=== PATIENT | female | born 1980 | race African-American/Black ===

== ENCOUNTER 2017-02-14 22:55 | Emergency (ER) | payer BC ==
[2017-02-14 23:45] VITALS: BP 133/70; PULSE 63; BMI 34.9
[2017-02-15 00:24] LABS: URINE APPEARANCE SLCLOUDY; URINE BILIRUBIN NEGATIVE (NEGATIVE); URINE BLOOD NEGATIVE (NEGATIVE); URINE COLOR YELLOW; URINE GLUCOSE (UA) NEGATIVE (NEGATIVE); URINE KETONE TRACE (NEGATIVE); URINE LEUK ESTERASE TRACE (NEGATIVE); URINE NITRITE NEGATIVE (NEGATIVE); URINE UROBILINOGEN NEGATIVE mg/dL (0.2-1.0)
[2017-02-15 00:25] LABS: URINE PROTEIN 1+ (NEGATIVE)
[2017-02-15] MEDS ORDERED: SODIUM CHLORIDE 0.9% 1000 ML INFUS.BAG IV ONE (00:25)
[2017-02-15] MEDS ORDERED: ONDANSETRON 4 MG/2 ML VIAL IVPUSH ONE (00:25)
[2017-02-15] MEDS ORDERED: ONDANSETRON 4 MG/2 ML VIAL ONE (00:31)
[2017-02-15 00:32] LABS: URINE MUCUS MODERATE; URINE RBC 1 /hpf (0-3); URINE WBC 12 /hpf (3-5)
[2017-02-15 00:48] LABS: ALBUMIN 3.9 g/dl (3.4-5.0); ALK PHOS 51 U/L (45-117); ANION GAP 9 (8-16); BILIRUBIN,TOTAL 0.5 mg/dL (0.2-1.0); CALCIUM 9.2 mg/dL (8.5-10.1); CO2 24 mmol/L (21-32); CREATININE 0.7 mg/dL (0.55-1.02); GLUCOSE,RANDOM 105 mg/dL (74-106); SGPT/ALT 25 U/L (12-78); TOT PROT 7.4 g/dl (6.4-8.2)
--- NOTE | 2017-02-15 00:48 | PDOC ---
History of Present Illness - General Chief Complaint: Nausea/Vomiting Stated Complaint: VOMITING/DIARRHEA Time Seen by Provider: 02/14/17 23:34 - History of Present Illness Initial Comments: 02/15/17 00:36 CHIEF COMPLAINT: HISTORY OF PRESENT ILLNESS: 36 yo F with hx of asthma presents to ED with abdominal pain and vomiting since this morning. Patient states she woke up and has been persistently vomiting all day, "around 15 times." She states she ate steak yesterday "and hasn't had any steak in the last 2-3 months." PAST MEDICAL HISTORY: Denies past medical history FAMILY HISTORY: Denies SOCIAL HISTORY: Denies tobacco, alcohol, illicit drug use. SURGICAL HISTORY: Denies ALLERGIES: No known drug allergies REVIEW OF SYSTEMS General/Constitutional: Denies fever or chills. Denies weakness, weight change. HEENT: Denies change in vision. Denies ear pain or discharge. Denies sore throat. Cardiovascular: Denies chest pain or shortness of breath. Respiratory: Denies cough, wheezing, or hemoptysis. Gastrointestinal: Denies nausea, vomiting, diarrhea or constipation. Denies rectal bleeding. Genitourinary: Denies dysuria, frequency, or change in urination. Musculoskeletal: Denies joint or muscle swelling or pain. Denies neck or back pain. Skin and breasts: Denies rash or easy bruising. Neurologic: Denies headache, vertigo, loss of consciousness, or loss of sensation. PHYSICAL EXAM General Appearance: Well-appearing, appropriately dressed. HEENT: EOMI, PERRLA, normal ENT inspection, normal voice, TMs normal, pharynx normal. No conjunctival pallor. No photophobia, scleral icterus. Neck: Supple. Trachea midline. No tenderness, rigidity, carotid bruit, stridor , lymphadenopathy, or thyromegaly. Respiratory/Chest: Lungs CTAB. Cardiovascular: RRR. S1, S2. Vascular Pulses: Dorsalis-Pedis (R): 2+, Dorsalis-Pedis (L): 2+ Gastrointestinal/Abdominal: TTP to RUQ and epigastrum. Normal bowel sounds. Abdomen soft, non-distended. No organomegaly, pulsatile mass, guarding, hernia , hepatomegaly, splenomegaly. Lymphatic: No adenopathy, tenderness. Musculoskeletal/Extremities: Normal inspection. FROM of all extremities, normal capillary refill. Pelvis Stable. No CVA tenderness. No tenderness to extremities, pedal edema, swelling, erythema or deformity. Integumentary: Appropriate color, dry, warm. No cyanosis, erythema, jaundice or rash Neurologic: cuff setter lockstitch II-XII intact. Fully oriented, alert. Appropriate mood/affect. Motor strength 5/5. No appreciable EOM palsy, facial droop or sensory deficit. 02/15/17 02:22 Past History - Past Medical History Allergies/Adverse Reactions: Allergies Allergy/AdvReac Type Severity Reaction Status Date / Time No Known Allergies Allergy Verified 02/14/17 23:40 Home Medications: Ambulatory Orders Ondansetron [Zofran *Odt*] 8 mg SL BID PRN #14 od.tablet 02/15/17 Asthma: Yes Cancer: No Cardiac Disorders: No Diabetes: No HTN: No Suicide Attempt (Hx): No Seizures: No Thyroid Disease: No - Reproductive History (#): 2 Para: 1 - Immunization History Immunization Up to Date: Yes - Psycho/Social/Smoking Cessation Hx Anxiety: No Suicidal Ideation: No Smoking Status: No Smoking History: Never smoked Have you smoked in the past 12 months: No Number of Cigarettes Smoked Daily: 2 Information on smoking cessation initiated: No Hx Alcohol Use: No Drug/Substance Use Hx: No Substance Use Type: Alcohol Hx Substance Use Treatment: No *Physical Exam - Vital Signs Last Vital Signs Temp Pulse Resp BP Pulse Ox 63 14 133/70 98 02/14/17 23:40 02/14/17 23:40 02/14/17 23:40 02/14/17 23:40 ED Treatment Course - LABORATORY CBC & Chemistry Diagram: 02/15/17 00:15 - ADDITIONAL ORDERS Additional order review: Laboratory Results 02/15/17 00:12 Urine Color Yellow Urine Appearance Slcloudy Urine pH 6.0 D Urine Protein 1+ H Urine Glucose (UA) Negative Urine Ketones Trace H Urine Blood Negative Urine Nitrite Negative Urine Bilirubin Negative Urine Urobilinogen Negative Ur Leukocyte Esterase Trace Urine RBC 1 Urine WBC 12 Ur Epithelial Cells Moderate Urine Mucus Moderate Medical Decision Making - Medical Decision Making 02/15/17 00:48 36 yo F with hx of asthma presents to ED with abdominal pain and vomiting since this morning. -CBC, CMP, lipase -UA, UCx, lipase -Zofran, IVF *DC/Admit/Observation/Transfer Diagnosis at time of Disposition: Vomiting - Discharge Dispostion Disposition: HOME Condition at time of disposition: Stable Admit: No - Prescriptions Prescriptions: Ondansetron [Zofran *Odt*] 8 mg SL BID PRN #14 od.tablet PRN Reason: Nausea And/Or Vomiting - Referrals Referrals: Cristian Colbert MD [Primary Care Provider] - - Patient Instructions Printed Discharge Instructions: DI for Vomiting -- Adult Additional Instructions: Please take medication as prescribed. As discussed, please see Dr. Colbert on as planned, and if you develop any new or worsening abdominal pain, fever, chills, tremors, or any new or worsening symptoms, please return to the ER.
[2017-02-15 00:54] LABS: SGOT/AST 12 U/L (15-37)
[2017-02-15] MEDS ORDERED: ONDANSETRON *ODT* 4 MG TABLET SL ONE (01:02)
[2017-02-15] MEDS ORDERED: ONDANSETRON *ODT* 4 MG TABLET ONE (01:03)
== END 2017-02-15 02:29 | disposition home or self-care (01) ==
LOC: JER 22:55
DX: R11.10 Vomiting, unspecified (principal)
CPT/HCPCS: 36415; 80053; 81003; 81015; 83690; 84703; 99282-25

== ENCOUNTER 2017-02-21 10:47 | Emergency (ER) | payer BC ==
[2017-02-21 11:11] VITALS: BP 114/67; PULSE 73; TEMP 98.3; BMI 35.1
[2017-02-21] MEDS ORDERED: ALBUTEROL SO4 2.5/IPRATROPIUM 0.5 INH SOL 3 ML VIAL.NEB. NEB ONE ×2 (11:37→11:46)
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
== END 2017-02-21 13:24 | disposition home or self-care (01) ==
LOC: JER 10:47
PROC: 3E0F7GC Introduction of Other Therapeutic Substance into Respiratory Tract, Via Natural or Artificial Opening (ICD-10-PCS; principal; 2017-02-21)
DX: T59.811A Toxic effect of smoke, accidental (unintentional), initial encounter (principal); J68.8 Other respiratory conditions due to chemicals, gases, fumes and vapors; J45.998 Other asthma; Y92.811 Bus as the place of occurrence of the external cause
CPT/HCPCS: 99282-25

== ENCOUNTER 2017-05-07 14:25 | Emergency (ER) | payer BC ==
[2017-05-07 14:55] VITALS: BP 122/64; PULSE 75; TEMP 98.2; BMI 33.3
[2017-05-07] MEDS ORDERED: ONDANSETRON *ODT* 4 MG TABLET ONE (15:14)
--- NOTE | 2017-05-07 15:25 | PDOC ---
History of Present Illness - General Chief Complaint: Nausea/Vomiting Stated Complaint: VOMITING Time Seen by Provider: 05/07/17 15:10 History Source: Patient Exam Limitations: No Limitations - History of Present Illness Travel History: No Initial Comments: 05/07/17 15:20 Patient came for evaluation of acute onset of nausea and vomiting this morning approximately 3 AM. States had 2 episodes of emesis with 2 episodes of watery stool. Denies fever but states felt chills. Is uncertain as to cause and young daughter was ill with same. Denies any knowledge of tainted food ingestion, has had no recent travel, is uncertain as status. Denies vaginal drainage or dysuria 05/07/17 15:22 Timing/Duration: reports: getting worse, intermittent Quality: reports: mild, moderate, aching, stabbing Abdominal Pain Onset Location: reports: generalized abdomen Pain Radiation: reports: no radiation Past History - Travel Traveled outside of the country in the last 30 days: No Close contact w/someone who was outside of country & ill: No - Past Medical History Allergies/Adverse Reactions: Allergies Allergy/AdvReac Type Severity Reaction Status Date / Time No Known Allergies Allergy Verified 05/07/17 14:51 Home Medications: Ambulatory Orders Ondansetron [Zofran *Odt*] 4 mg SL PRN PRN #14 od.tablet 05/07/17 Asthma: Yes Cancer: No Cardiac Disorders: No COPD: No DVT: No Diabetes: No HTN: No Seizures: No Thyroid Disease: No - Reproductive History (#): 2 Para: 1 - Immunization History Immunization Up to Date: Yes - Suicide/Smoking/Psychosocial Hx Smoking Status: No Smoking History: Never smoked Have you smoked in the past 12 months: No Number of Cigarettes Smoked Daily: 2 If you are a former smoker, when did you quit?: 3yrs Information on smoking cessation initiated: No Hx Alcohol Use: No Drug/Substance Use Hx: No Substance Use Type: Alcohol Hx Substance Use Treatment: No Review of Systems - Review of Systems Able to Perform ROS?: Yes Is the patient limited [place]alander proficient: Yes Constitutional: Yes: Symptoms Reported, See HPI, Chills, Loss of Appetite, Malaise. No: Fever HEENTM: Yes: See HPI. No: Symptoms Reported ABD/GI: Yes: Symptoms Reported, See HPI, Diarrhea, Nausea, Vomiting (2x 2 ). No: Constipated : Yes: See HPI. No: Symptoms Reported Neurological: Yes: Symptoms reported All Other Systems: Reviewed and Negative *Physical Exam - Vital Signs Last Vital Signs Temp Pulse Resp BP Pulse Ox 98.2 F 75 16 122/64 98 05/07/17 14:52 05/07/17 14:52 05/07/17 14:52 05/07/17 14:52 05/07/17 14:52 - Physical Exam General Appearance: Yes: Nourished, Appropriately Dressed HEENT: positive: DANIELE, TMs Normal, Pharynx Normal Neck: positive: Tender, Supple. negative: Lymphadenopathy (R), Lymphadenopathy (L) Respiratory/Chest: positive: Lungs Clear, Normal Breath Sounds Gastrointestinal/Abdominal: positive: Tender, Soft. negative: Guarding, Rebound , Tenderness Extremity: positive: Normal Capillary Refill, Normal Inspection, Normal Range of Motion Integumentary: positive: Dry, Warm, Pale Neurologic: positive: news editor II-XII NML intact, Fully Oriented, Alert, Normal Mood/ Affect, Normal Response, Motor Strength 5/5 Medical Decision Making - Medical Decision Making 05/07/17 15:59 Given 4 mg of ODT Zofran with much improved. UCG negative, it feels better without emesis or abdominal pain. Ready for discharge *DC/Admit/Observation/Transfer Diagnosis at time of Disposition: Gastroenteritis - Discharge Dispostion Disposition: HOME Condition at time of disposition: Stable Admit: No - Prescriptions Prescriptions: Ondansetron [Zofran *Odt*] 4 mg SL PRN PRN #14 od.tablet PRN Reason: vomiting - Referrals Referrals: Cristian Colbert MD [Primary Care Provider] - - Patient Instructions Printed Discharge Instructions: DI for Viral Gastroenteritis -- Adult Additional Instructions: Rest, drink lots of fluids: Teas, water, soups Nina ankita, carbonated beverages for the bubbles May try peppermint teas Avoid heavy , spicy or fatty foods until symptoms have resolved Avoid contact with others until fevers and symptoms resolved Lots of handwashing and good hygiene Continue [id number] medications for symptomatic relief Tylenol or Motrin for fever and pain May use Zofran-one tablet dissolved on tongue as needed for nauseousness. May repeat times one every 8 hours Followup with private physician in one to 2 days as needed Return to emergency department for worsened symptoms, fevers, dehydration - Post Discharge Activity Forms/Work/School Notes: Back to Work
== END 2017-05-07 16:02 | disposition home or self-care (01) ==
LOC: JERFT 14:25
DX: K52.9 Noninfective gastroenteritis and colitis, unspecified (principal)
CPT/HCPCS: 84703; 99281-25

== ENCOUNTER 2017-12-23 09:59 | Emergency (ER) | payer BC ==
[2017-12-23 10:07] VITALS: BP 100/65; PULSE 83; TEMP 98.3; BMI 31.2
[2017-12-23] MEDS ORDERED: SODIUM CHLORIDE 1,000 ML IV STA (10:21)
[2017-12-23] MEDS ORDERED: ACETAMINOPHEN 325 MG TABLET (FP) PO ONE (10:21)
--- NOTE | 2017-12-23 10:35 | PDOC ---
History of Present Illness - General History Source: Patient - History of Present Illness Timing/Duration: reports: constant, other (last night) Abdominal Pain Onset Location: reports: other (sore) <EritreanGagan - Last Filed: 12/23/17 13:37> <Lisa Young - Last Filed: 12/23/17 14:33> - General Chief Complaint: Wound Stated Complaint: POST OP PROBLEM Time Seen by Provider: 12/23/17 10:15 Past History - Past Medical History Asthma: Yes Cancer: No Cardiac Disorders: No COPD: No DVT: No Diabetes: No HTN: No Seizures: No Thyroid Disease: No - Reproductive History (#): 2 Para: 1 - Immunization History Immunization Up to Date: Yes - Suicide/Smoking/Psychosocial Hx Smoking Status: No Smoking History: Current some day smoker Have you smoked in the past 12 months: Yes Number of Cigarettes Smoked Daily: 2 If you are a former smoker, when did you quit?: 3yrs Information on smoking cessation initiated: No Hx Alcohol Use: No Drug/Substance Use Hx: No Substance Use Type: Alcohol Hx Substance Use Treatment: No <Gagan Younger - Last Filed: 12/23/17 13:37> <Lisa Young - Last Filed: 12/23/17 14:33> - Past Medical History Allergies/Adverse Reactions: Allergies Allergy/AdvReac Type Severity Reaction Status Date / Time No Known Allergies Allergy Verified 12/23/17 10:02 Home Medications: Ambulatory Orders Ibuprofen 600 mg PO PRN PRN 12/23/17 Review of Systems - Review of Systems Constitutional: No: Chills, Fever Respiratory: No: Shortness of Breath Cardiac (ROS): No: Chest Pain, Palpitations ABD/GI: No: Blood Streaked Bowels, Constipated, Diarrhea, Nausea, Vomiting, Tarry Stools : No: Dysuria, Flank Pain Musculoskeletal: No: Back Pain <Gagan Younger - Last Filed: 12/23/17 13:37> *Physical Exam - Vital Signs Last Vital Signs Temp Pulse Resp BP Pulse Ox 98.3 F 83 19 100/65 100 12/23/17 10:02 12/23/17 10:02 12/23/17 10:02 12/23/17 10:02 12/23/17 10:02 - Physical Exam General Appearance: Yes: Appropriately Dressed. No: Apparent Distress HEENT: positive: Normal Voice Neck: positive: Supple Respiratory/Chest: negative: Respiratory Distress Gastrointestinal/Abdominal: positive: Normal Bowel Sounds, Tender (extensive sx incision to lower abd w/ steristrips in place w/ minimal serosanguinous drainage noted to middle portion of wound, no erythema or pus) Musculoskeletal: negative: CVA Tenderness Integumentary: positive: Dry, Warm Neurologic: positive: Fully Oriented, Alert, Normal Mood/Affect <Gagan Younger - Last Filed: 12/23/17 13:37> - Vital Signs Last Vital Signs Temp Pulse Resp BP Pulse Ox 98.3 F 83 19 100/65 100 12/23/17 10:02 12/23/17 10:02 12/23/17 10:02 12/23/17 10:02 12/23/17 10:02 <Lisa Young - Last Filed: 12/23/17 14:33> ED Treatment Course - LABORATORY CBC & Chemistry Diagram: 12/23/17 10:00 12/23/17 10:00 - RADIOLOGY Radiology Studies Ordered: Category Date Time Status ABDOMEN & PELVIS CT WITH CONTR [CT] Stat CT Scan 12/23/17 10:26 Ordered <Gagan Younger - Last Filed: 12/23/17 13:37> - LABORATORY CBC & Chemistry Diagram: 12/23/17 10:00 12/23/17 10:00 - ADDITIONAL ORDERS Additional order review: Laboratory Results 12/23/17 12/23/17 12/23/17 11:02 10:00 10:00 PT with INR INR Sodium 142 Potassium 4.0 Chloride 109 H Carbon Dioxide 23 Anion Gap 10 BUN 11 Creatinine 0.7 Creat Clearance w eGFR > 60 Random Glucose 98 Calcium 8.6 Total Bilirubin 0.5 AST 14 L ALT 27 Alkaline Phosphatase 39 L Total Protein 6.6 Albumin 3.2 L Urine Color Yellow Urine Appearance Cloudy Urine pH 5.0 Ur Specific [place] 1.026 Urine Protein Negative Urine Glucose (UA) Negative Urine Ketones Negative Urine Blood Negative Urine Nitrite Negative Urine Bilirubin Negative Urine Urobilinogen 2.0 H Ur Leukocyte Esterase 3+ H Urine WBC (Auto) None Urine RBC (Auto) 3 Ur Epithelial Cells Few Urine Mucus Rare Urine HCG, Qual Negative Blood Type O POSITIVE Antibody Screen Negative 12/23/17 10:00 PT with INR 11.90 INR 1.05 Sodium Potassium Chloride Carbon Dioxide Anion Gap BUN Creatinine Creat Clearance w eGFR Random Glucose Calcium Total Bilirubin AST ALT Alkaline Phosphatase Total Protein Albumin Urine Color Urine Appearance Urine pH Ur Specific [place] Urine Protein Urine Glucose (UA) Urine Ketones Urine Blood Urine Nitrite Urine Bilirubin Urine Urobilinogen Ur Leukocyte Esterase Urine WBC (Auto) Urine RBC (Auto) Ur Epithelial Cells Urine Mucus Urine HCG, Qual Blood Type Antibody Screen 12/23/17 10:00 RBC 4.62 MCV 86.1 MCHC 33.3 RDW 14.3 MPV 7.8 Neutrophils % 75.4 Lymphocytes % 18.1 D Monocytes % 4.5 D Eosinophils % 1.1 D Basophils % 0.9 - Medications Given in the ED: ED Medications Discontinued Medications Generic Name Dose Route Start Last Admin Trade Name Freq PRN Reason Stop Dose Admin Acetaminophen 650 mg 12/23/17 10:21 12/23/17 11:07 Tylenol - PO 12/23/17 10:22 650 mg ONCE ONE Administration Sodium Chloride 1,000 mls @ 1,000 mls/hr 12/23/17 10:21 12/23/17 11:07 Normal Saline - IV 12/23/17 11:20 1,000 mls/hr ASDIR STA Administration <Lisa Young - Last Filed: 12/23/17 14:33> Medical Decision Making - Medical Decision Making 12/23/17 10:30 37-year-old female status post abdominoplasty over 3 weeks ago in [place] with drain placement. Patient resides in [place] and since returning from [place] was referred to a surgeon at [facility] by her PMD, Dr. Colbert who patient states she saw last week . States surgeon removed her drain and that she was doing ok until last night when she noticed bloody discharge coming from surgery site with some "soreness"to area, otherwise no significant abdominal pain and no nausea, vomiting, fever or chills. Having normal bowel movements and no dysuria See exam Possible seroma s/p recent tummy tuck in [facility], s/p removal of drainage last week by surgeon at [facility], r/o hematoma, abscess, less likely SBO Stable and in NAD w/ minimal bloody discharge to surgery site, steri trips in place w/ no erythema or pus noted -pain control -labs -CT a/p -dispo pending w/u 12/23/17 13:37 Labs within normal limits and CT read as postoperative changes, no e/o of hematoma or abscess. Patient's pain improved with Tylenol. Stable for discharge as discussed with Dr. Young. Patient states she will contact her surgeon at [facility] and arrange follow-up for early next week. Strict return precautions given. pt given copy of labs and CT report <Gagan Younger - Last Filed: 12/23/17 13:37> *DC/Admit/Observation/Transfer <Gagan Younger - Last Filed: 12/23/17 13:37> - Attestations Physician Attestion: I reviewed the case with the mid-level practitioner and agree with the mid- level practitioner's assessment, diagnosis and disposition. <Lisa Young - Last Filed: 12/23/17 14:33> Diagnosis at time of Disposition: Post-operative pain - Discharge Dispostion Disposition: HOME Condition at time of disposition: Improved - Referrals Referrals: Cristian Colbert MD [Primary Care Provider] - - Patient Instructions Additional Instructions: Your blood work was normal and your CAT scan showed normal postoperative changes. There was no evidence of hematoma, abscess or other postoperative complications at this time. Dress wound with gauze and take Motrin or Tylenol as needed for pain. Please contact your surgeon today and make appointment for early next week. If symptoms worsen, return to ER immediately - Post Discharge Activity Forms/Work/School Notes: Back to Work
[2017-12-23 10:39] LABS: BASO % 0.9 % (0-2.0); EOS % 1.1 % (0-4.5); HEMATOCRIT 39.8 % (32.4-45.2); HEMOGLOBIN 13.3 GM/dL (10.7-15.3); LYMPH % 18.1 % (8-40); MCH 28.7 pg (25.7-33.7); MCHC 33.3 g/dl (32.0-36.0); MEAN CELL VOLUME 86.1 fl (80-96); MEAN PLT VOLUME 7.8 fl (7.5-11.1); MONO % 4.5 % (3.8-10.2); NEUT % 75.4 % (42.8-82.8); PLATELET COUNT 381 K/MM3 (134-434); RBC 4.62 M/mm3 (3.60-5.2); RDW 14.3 % (11.6-15.6)
[2017-12-23 10:54] LABS: INR 1.05 (0.82-1.09); PROTHROMBIN TIME (PATIENT) 11.9 SEC (9.7-13.0)
[2017-12-23 11:03] LABS: ALBUMIN 3.2 g/dl (3.4-5.0); ALK PHOS 39 U/L (45-117); ANION GAP 10 (8-16); BILIRUBIN,TOTAL 0.5 mg/dL (0.2-1.0); BLOOD UREA NITROGEN 11 mg/dL (7-18); CALCIUM 8.6 mg/dL (8.5-10.1); CHLORIDE 109 mmol/L (98-107); CO2 23 mmol/L (21-32); CREATININE 0.7 mg/dL (0.55-1.02); GLUCOSE,RANDOM 98 mg/dL (74-106); SGOT/AST 14 U/L (15-37); SGPT/ALT 27 U/L (12-78); SODIUM 142 mmol/L (136-145); TOT PROT 6.6 g/dl (6.4-8.2)
[2017-12-23] MEDS ORDERED: ACETAMINOPHEN 325 MG TABLET (FP) ONE (11:03)
[2017-12-23 11:14] LABS: URINE APPEARANCE CLOUDY; URINE BILIRUBIN NEGATIVE (<2.0 mg/dL); URINE COLOR YELLOW; URINE GLUCOSE (UA) NEGATIVE (NEGATIVE); URINE KETONE NEGATIVE (NEGATIVE); URINE NITRITE NEGATIVE (NEGATIVE); URINE PROTEIN NEGATIVE (NEGATIVE)
[2017-12-23 11:20] LABS: HCG,QUALITATIVE URINE NEGATIVE
[2017-12-23 11:25] LABS: URINE LEUK ESTERASE 3+ (NEGATIVE)
[2017-12-23 11:33] LABS: EPI CELLS FEW /HPF (FEW); URINE MUCUS RARE
== END 2017-12-23 14:09 | disposition home or self-care (01) ==
LOC: JER 09:59
PROC: 3E0337Z Introduction of Electrolytic and Water Balance Substance into Peripheral Vein, Percutaneous Approach (ICD-10-PCS; principal; 2017-12-23)
DX: G89.18 Other acute postprocedural pain (principal); Z87.898 Personal history of other specified conditions; Z98.890 Other specified postprocedural states
CPT/HCPCS: 36415; 74177-TC; 80053; 81003; 81015; 84703; 85025; 85610; 86850; 86900; 86901; 99283-25; J7030

== ENCOUNTER 2019-07-03 09:01 | Emergency (ER) | payer BC ==
[2019-07-03 09:38] VITALS: BP 104/76; PULSE 86; TEMP 98.4; BMI 20.5
[2019-07-03] MEDS ORDERED: IBUPROFEN 600 MG TABLET (FP) PO ONE ×2 (10:19→10:50)
--- NOTE | 2019-07-03 10:38 | PDOC ---
History of Present Illness - General Chief Complaint: Cold Symptoms Stated Complaint: COLD SYMPTOMS Time Seen by Provider: 07/03/19 09:44 History Source: Patient Exam Limitations: No Limitations - History of Present Illness Initial Comments: 07/03/19 10:33 39-year-old female denies past medical history presents complaining of dry cough , body aches, sore throat, subjective fever and chills x3 days which improved without intervention. Brought in her 2 children and requesting to be evaluated. Denies chest pain, shortness of breath, abdominal pain, urinary complaints, recent travel or any other symptom. ROS: GENERAL/CONSTITUTIONAL: Subjective fever, chills, denies weakness, dizziness HEAD, EYES, EARS, NOSE AND THROAT: Sore throat, no changes in vision, No ear pain CARDIOVASCULAR: No chest pain RESPIRATORY: Cough, no shortness of breath GASTROINTESTINAL: No pain, nausea, vomiting, diarrhea or constipation GENITOURINARY: No dysuria MUSCULOSKELETAL: No neck or back pain SKIN: No rash NEUROLOGIC: No headache, vertigo, loss of consciousness, or loss of sensation PE: GENERAL: well-appearing, NAD HEAD: NCAT EYES: Pupils equal, round and reactive to light, sclera anicteric, conjunctiva clear ENT: pharynx: no erythema, no exudate, uvula midline NECK: supple CHEST: nontender RESP: clear, no w/r/r CARDIO: rrr, no m/g/r ABD: +BS, soft, nontender, non distended BACK: no midline spinal ttp, no CVAT EXTREMITIES: Normal range of motion, no edema NEUROLOGICAL: Normal speech, normal gait SKIN: Warm, Dry Past History - Past Medical History Allergies/Adverse Reactions: Allergies Allergy/AdvReac Type Severity Reaction Status Date / Time No Known Allergies Allergy Verified 12/23/17 10:02 Home Medications: Ambulatory Orders NK [No Known Home Medication] 07/03/19 Asthma: Yes Cancer: No Cardiac Disorders: No COPD: No DVT: No Diabetes: No HTN: No Seizures: No Thyroid Disease: No - Reproductive History (#): 2 Para: 1 - Immunization History Immunization Up to Date: Yes - Psycho Social/Smoking Cessation Hx Smoking Status: No Smoking History: Never smoked Have you smoked in the past 12 months: No Number of Cigarettes Smoked Daily: 2 If you are a former smoker, when did you quit?: 3yrs Information on smoking cessation initiated: No Hx Alcohol Use: No Drug/Substance Use Hx: No Substance Use Type: Alcohol Hx Substance Use Treatment: No *Physical Exam - Vital Signs Last Vital Signs Temp Pulse Resp BP Pulse Ox 98.4 F 86 18 104/76 98 07/03/19 09:36 07/03/19 09:36 07/03/19 09:36 07/03/19 09:36 07/03/19 09:36 Medical Decision Making - Medical Decision Making 07/03/19 10:36 39-year-old female complaining of subjective fever chills, body aches, dry cough and sore throat x3 days. All symptoms have improved however requesting to be evaluated given that she brought in her 2 children to be seen. Well-appearing P.o. ibuprofen provided Supportive care instructions Return precautions discussed Discharge - Discharge Information Problems reviewed: Yes Clinical Impression/Diagnosis: Viral illness Condition: Stable Disposition: HOME - Admission No - Follow up/Referral Referrals: Cristian Colbert MD [Primary Care Provider] - - Patient Discharge Instructions Additional Instructions: Remain hydrated Alternate between ibuprofen and acetaminophen every 6 hours as needed Return if chest pain, shortness of breath, abdominal pain or any worsening symptom Follow-up with your doctor as needed within 1 to 2 weeks - Post Discharge Activity
== END 2019-07-03 11:16 | disposition home or self-care (01) ==
LOC: JERFT 09:01
DX: B34.9 Viral infection, unspecified (principal)
CPT/HCPCS: 99281-25

== ENCOUNTER 2022-07-13 10:17 | Emergency (ER) | payer BC, OTHER ==
[2022-07-13 10:36] VITALS: BP 119/68; PULSE 88; RESP 20; TEMP 97.6; BMI 32.3
[2022-07-13] MEDS ORDERED: SODIUM CHLORIDE 1,000 ML IV STA (11:26)
[2022-07-13] MEDS ORDERED: METOCLOPRAMIDE HCL INJECTION 10 MG/2 ML VIAL IVPUSH ONE (11:26)
[2022-07-13] MEDS ORDERED: ACETAMINOPHEN 1000 MG/100 ML BAG IVPB ONE (11:26)
[2022-07-13] MEDS ORDERED: METOCLOPRAMIDE HCL INJECTION 10 MG/2 ML VIAL ONE (12:12)
[2022-07-13] MEDS ORDERED: ACETAMINOPHEN INJECTION 100 ML IVPB ONE (12:12)
[2022-07-13 12:33] LABS: HEMATOCRIT 46.6 % (32.4-45.2); HEMOGLOBIN 15.3 GM/dL (10.7-15.3); MCH 28.8 pg (25.7-33.7); MCHC 32.9 g/dl (32.0-36.0); MEAN CELL VOLUME 87.6 fl (80-96); MEAN PLT VOLUME 8.2 fl (7.5-11.1); PLATELET COUNT 268 10^3/uL (134-434); RBC 5.31 M/mm3 (3.60-5.2); RDW 14.7 % (11.6-15.6); WHITE BLOOD COUNT 15.4 K/mm3 (4.0-10.0)
[2022-07-13 12:38] LABS: EPI CELLS 21 /uL (0-25.1); HYALINE CASTS 4 /uL (0-3.1); PH,URINE 6.5 (5.0-8.0); URINE APPEARANCE CLEAR; URINE BACTERIA 163 /uL (0-1359); URINE BILIRUBIN NEGATIVE (NEGATIVE); URINE COLOR YELLOW; URINE GLUCOSE (UA) NEGATIVE (NEGATIVE); URINE KETONE 1+ (NEGATIVE); URINE LEUK ESTERASE 2+ (NEGATIVE); URINE NITRITE NEGATIVE (NEGATIVE); URINE PROTEIN 1+ (NEGATIVE); URINE RBC 40 /uL (0-23.9); URINE UROBILINOGEN 0.2 mg/dL (0.2-1.0); URINE WBC 356 /uL (0-25.8)
[2022-07-13 12:39] LABS: HCG,QUALITATIVE URINE Negative
[2022-07-13 13:04] LABS: ANISOCYTOSIS 0; HELMET CELLS 0; HOWELL-JOLLY BODIES 0; MACROCYTOSIS 0; OVALOCYTE 0; ROULEAU 0; SICKELED CELLS 0; TARGET CELLS 0; TEAR DROP CELLS 0; TOXIC GRANULATION 0
[2022-07-13 13:12] LABS: ALBUMIN 3.8 g/dl (3.4-5.0); CALCIUM 9.5 mg/dL (8.5-10.1)
[2022-07-13 13:13] LABS: BLOOD UREA NITROGEN 11.2 mg/dL (7-18)
[2022-07-13 13:15] LABS: CREATININE 0.7 mg/dL (0.55-1.3)
[2022-07-13 13:17] LABS: BILIRUBIN,TOTAL 0.8 mg/dL (0.2-1); TOT PROT 7.6 g/dl (6.4-8.2)
== END 2022-07-13 14:34 | disposition home or self-care (01) ==
LOC: JER 10:17 → JERFT 10:17
PROC: 3E0333Z Introduction of Anti-inflammatory into Peripheral Vein, Percutaneous Approach (ICD-10-PCS; principal; 2022-07-13)
PROC: 3E033GC Introduction of Other Therapeutic Substance into Peripheral Vein, Percutaneous Approach (ICD-10-PCS; 2022-07-13)
PROC: 3E0337Z Introduction of Electrolytic and Water Balance Substance into Peripheral Vein, Percutaneous Approach (ICD-10-PCS; 2022-07-13)
DX: K52.9 Noninfective gastroenteritis and colitis, unspecified (principal); N30.00 Acute cystitis without hematuria
CPT/HCPCS: 36415; 76705-TC; 80053; 81003; 83690; 84703; 85025; 87086; 93005; 93010; 99285-25

== ENCOUNTER 2024-03-17 03:11 | Emergency (ER) | payer OTHER ==
[2024-03-17 03:21] VITALS: BP 150/80; PULSE 99; RESP 18; TEMP 98.8; BMI 35.9
[2024-03-17] MEDS ORDERED: ACETAMINOPHEN 500 MG TABLET (FP) ONE (04:16)
[2024-03-17] MEDS: ACETAMINOPHEN 500 MG TABLET (FP) PO ONE (04:17)
== END 2024-03-17 06:24 | disposition home or self-care (01) ==
LOC: JER 03:11
DX: M25.511 Pain in right shoulder (principal); Y04.8XXA Assault by other bodily force, initial encounter
CPT/HCPCS: 73030-TC-RT-FY; 99283-25